=== PATIENT | female | born 1990 | race Caucasian/White ===

== ENCOUNTER 2021-12-31 16:58 | Emergency (ER) | payer BC, SELFPAY ==
--- NOTE | ~2021-12-31 | US_ITS ---
EXAMINATION: Ultrasound OB less than 14 weeks, TV CLINICAL HISTORY: Cramping and bleeding, passed one clot today. Evaluate for ectopic . TECHNIQUE: Sonography of the pelvis was performed by transabdominal and transvaginal techniques. COMPARISON: None. RESULT: Uterus: - Orientation: Anteverted - Size: 8.8 x 5.7 x 4.3 cm - Myometrium: homogeneous echogenicity Gestation: - Intrauterine gestational sac: Not seen Right ovary: - Size : 2.9 x 2.2 x 1.5 cm - Normal sonographic appearance with physiologic follicles. No right adnexal mass. Left ovary: - Size: 2.5 x 1.7 x 1.4 cm - Normal sonographic appearance with physiologic follicles. No left adnexal mass. Pelvis free fluid: None. IMPRESSION: No adnexal mass. No intrauterine identified. Correlate with last menstrual period and/or qu antitative beta-hCG. If estimated gestational age is less than 4 weeks, 3 days and/or beta-hCG < 1000 -2000 mIU/mL, nonvisualization of an intrauterine may be normal. If beta-hCG > 8994-1288 mI U/mL, these findings would be concerning for ectopic . Reviewed, dictated and finalized at location [facility]. IMPRESSION: No adnexal mass. No intrauterine identified. Correlate with last mens trual period and/or quantitative beta-hCG. If estimated gestational age is less than 4 weeks, 3 days and/or beta-hCG < 2688-5397 mIU/mL, nonvisualization of a n intrauterine may be normal. If beta-hCG > 9202-6562 mIU/mL, these f indings would be concerning for ectopic .
[2021-12-31 17:06] VITALS: BP 159/98; PULSE 99; RESP 18; TEMP 36; O2SAT 99
--- NOTE | 2021-12-31 17:41 | ED.PREGNANCY ---
HPI - General Chief complaint: Vaginal Bleeding Stated complaint: , bleeding Time Seen by Provider: 12/31/21 17:29 History of Present Illness HPI Narrative: 31-year-old female presents the emergency room for evaluation of cute onset of a vaginal bleed Patient states she took an at home urine test last night, and again this morning, both resulted in positive . Patient states this morning at about 11:00, she began to develop abdominal cramping and then began experiencing vaginal bleeding that included a large blood clot with some tissue. Presently patient denies any abdominal pain, and states that she is experiencing some mild spotting. Last menstrual period was November 18, 2021 Related Data Allergies Allergy/AdvReac Type Severity Reaction Status Date / Time ANTIBIOTIC Allergy Mild HIVES Uncoded 09/05/14 00:53 Review of Systems Review of Systems: CONSTITUTIONAL: Denies fever, chills, or sweats. EYES: Denies visual changes, redness, or discharge. ENT: Denies rhinorrhea, congestion, sore throat, or otalgia. CARDIOVASCULAR: Denies chest pain, palpitations, or edema. RESPIRATORY: Denies cough or dyspnea. GASTROINTESTINAL: Reports abdominal cramping GENITOURINARY: Reports vaginal bleeding SKIN: Denies rash or itching. MUSCULOSKELETAL: Denies back pain, joint pain, or myalgia. NEUROLOGIC: Denies headache, numbness, dizziness, or weakness. PSYCHIATRIC: Denies anxiety or depression. Exam Narrative: GENERAL: Well-appearing, well-nourished, and in no acute distress. HEAD: Normocephalic, atraumatic. EYES: PERRLA and EOMI. CHEST: Clear to auscultation. No respiratory distress. No wheezes rales or rhonchi HEART: Regular rate and rhythm. No murmur heard. Normal peripheral pulses. ABDOMEN: Soft, nontender, nondistended, normal active bowel sounds. EXTREMITIES: Normal range of motion. No edema. SKIN: Warm, dry, no rash. NEURO: No focal deficits. Alert and oriented x3. PSYCH: Normal mood and affect. Course Vital Signs Vital signs: Vital Signs Temperature 36.0 C L 12/31/21 17:06 Pulse Rate 99 12/31/21 17:06 Respiratory Rate 18 12/31/21 17:06 Blood Pressure 159/98 H 12/31/21 17:06 Pulse Oximetry 99 12/31/21 17:06 Temperature 36.0 C L 12/31/21 17:06 Pulse Rate 99 12/31/21 17:06 Respiratory Rate 18 12/31/21 17:06 Blood Pressure 159/98 H 12/31/21 17:06 Pulse Oximetry 99 12/31/21 17:06 MDM - OB/Uterine Contractions MDM Narrative Medical decision making narrative: 31-year-old female presented the emergency room plaints of lower abdominal cramping and passage of a large clot. Patient states that she took several tests and they showed a faint positive line. Pelvic ultrasound demonstrates no adnexal mass, and no intrauterine identified. No concerns for . Vaginal bleeding was likely related to spontaneous or the beginning of her menses. 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 Lab Data Attestation: I reviewed the patient's lab results. Result diagrams: 12/31/21 17:41 12/31/21 17:41 Labs: Lab Results 12/31/21 12/31/21 12/31/21 Range/Units 17:41 17:41 17:41 WBC 14.8 H (4.5-10.0) K/mm3 RBC 4.25 (4.2-5.4) M/mm3 Hgb 13.8 (12.0-15.0) g/dL Hct 41.1 (37.0-47.0) % MCV 96.7 (80-100) fl MCH 32.5 (26-34) pg MCHC 33.6 (32-36) g/dl RDW 13.7 (11.5-14.5) % Plt Count 454 H (150-375) k/mm3 MPV 10.1 (7.4-10.4) fl Immature Gran % (Auto) Not Reportable Neut % (Auto) Not Reportable Lymph % (Auto) Not Reportable Miller % (Auto) Not Reportable Eos % (Auto) Not Reportable Baso % (Auto) Not Reportable Lymph # (Auto) Not Reportable Miller # (Auto) Not Reportable Eos # (Auto) Not Reportable Baso # (Auto) Not Reportable Abs Immat Gran (auto) Not Reportable Absolute Neuts (auto) Not Reportable Abso
[2021-12-31 18:00] LABS: Hematocrit 41.1 % (37.0-47.0); Hemoglobin 13.8 g/dL (12.0-15.0); Mean Corpuscular HGB Conc 33.6 g/dl (32-36); Mean Corpuscular Hemoglobin 32.5 pg (26-34); Mean Corpuscular Volume 96.7 fl (80-100); Mean Platelet Volume 10.1 fl (7.4-10.4); Platelet Count Result 454 k/mm3 (150-375); Red Blood Count 4.25 M/mm3 (4.2-5.4); Red Cell Distribution Width 13.7 % (11.5-14.5); White Blood Count 14.8 K/mm3 (4.5-10.0)
--- NOTE | 2021-12-31 18:07 | PC.NURSE ---
pt to us via w/c
[2021-12-31 18:11] LABS: Alanine Aminotransferase 20 U/L (4-35); Albumin Level 3.8 g/dL (3.5-5.1); Alkaline Phosphatase 73 U/L (38-126); Anion Gap 4 mmol/L (8-16); Aspartate Amino Transferase 22 U/L (14-36); Bilirubin,Total 0.2 mg/dL (0.2-1.3); Blood Urea Nitrogen 8 mg/dL (7-17); Calcium 8.6 mg/dL (8.4-10.2); Carbon Dioxide 26 mmol/L (22-30); Chloride 105 mmol/L (98-107); Estimated CRCL calculation 113 ml/min; Estimated Glomerular Filt Rate > 60; Glucose 90 mg/dL (65-110); Potassium 3.8 mmol/L (3.4-5.0); Sodium 135 mmol/L (137-145)
[2021-12-31 18:31] LABS: Beta HCG Quantitative 3.27 mIU/ML
[2021-12-31 18:42] LABS: Band Neutrophils Percent 1 % (0-6); Eosinophils Absolute Manual 0.29 K/mm3 (0.02-0.5); Eosinophils Percent Manual 2 % (0-4); Lymphocytes Absolute Manual 4.58 K/mm3 (1.1-4.5); Lymphocytes Percent Manual 31 % (18-44); Monocytes Absolute Manual 0.59 K/mm3 (0.1-0.90); Monocytes Percent Manual 4 % (3-9); Neutrophils Absolute Manual 9.32 K/mm3 (1.7-7.2); Neutrophils Percent Manual 62 % (46-73); Platelet Estimate Increased (Adequate); Total Cells Counted 100
[2021-12-31 18:48] LABS: Appearance Urine Clear (Clear); Bilirubin Urine Negative (Negative); Blood Urine Trace-lysed (Negative); Color Urine Yellow (Yellow); Glucose Urine UA Negative (Negative); Ketones Urine Negative (Negative); Leukocyte Esterase Ur Negative LEU/UL (Negative); Nitrate Urine Negative (Negative); Protein Urine Negative (Negative); pH Urine 7.5 (5.0-9.0)
[2021-12-31 19:05] LABS: Add Urine Microscopic? NO
[2021-12-31 19:20] LABS: INR 1.1; Partial Thromboplastin Time 33.2 SECONDS (22.3-36.8)
== END 2021-12-31 19:34 | disposition home or self-care (01) ==
PROVIDERS: Emergency Provider Nurse Practitioner Family
DX: O20.9 Hemorrhage in early pregnancy, unspecified (principal); Z3A.01 Less than 8 weeks gestation of pregnancy
CPT/HCPCS: 36415; 76801; 76817; 80053; 81003; 81025; 84702; 85025; 85610; 85730; 99284